=== PATIENT | male | born 1985 | race Caucasian/White ===

== ENCOUNTER 2023-11-13 16:00 | Outpatient (CLI) | payer BC | END 2023-11-13 16:01 | disposition home or self-care (01) | LOC: SLEEPLAB 16:00 | PROVIDERS: ATTEND Student in an Organized Health Care Education/Training Program | DX: G47.33 Obstructive sleep apnea (adult) (pediatric) (principal); G47.00 Insomnia, unspecified; F32.A Depression, unspecified; R53.83 Other fatigue; R40.0 Somnolence; R51.9 Headache, unspecified; R06.83 Snoring; E66.9 Obesity, unspecified; Z68.35 Body mass index [BMI] 35.0-35.9, adult | CPT/HCPCS: 95800 ==